=== PATIENT | male | born 1975 | race Caucasian/White ===

== ENCOUNTER 2021-03-27 06:18 | Day surgery (SDC) | payer OTHER, SELFPAY ==
[2021-03-27 06:46] VITALS: BP 119/89; PULSE 82; RESP 16; TEMP 36.4; O2SAT 97; BMI 32.4
[2021-03-27] MEDS: Lactated Ringers 1,000 ML 15 ML IV (06:52)
--- NOTE | 2021-03-27 07:30 | COLBX_PTH ---
PATIENT: NICHOLAS GARCIA Jr. LOC: EN U#:[id number] AGE/SX: 46/M ROOM: RE03/27/[address]: Dr. Sherwin Stephenson MD : 1975 BED: DIS: 03/27/2021 SPEC #: [id number] RECD: 03/27/21 07:53 STATUS: ARSLAN HERRERA #: [id number] RACHEL: 03/27/21 07:[address]: Sherwin Stephenson DEPT: SURGICAL PATHOLOGY RECD BY: Naila Michel Tissues: Rectum, NOS Procedures: Surgery Specimen Level IV HEADER OPERATION: Colonoscopy (MAC) PRE-OP DIAGNOSIS: LLQ pain TISSUE SUBMITTED: Rectal polyp MICROSCOPIC DIAGNOSIS Rectal polyp, biopsy: Fragments of hyperplastic polyp. SJ:daysi 03/28/2021 MICROSCOPIC DESCRIPTION Slides are reviewed. GROSS DESCRIPTION Received in fixative is one container labeled with the patient's name and designated rectal polyp. The specimen consists of two irregular fragments of light mccollum soft tissue that in aggregate measure 0.8 x 0.3 x 0.1 cm. The specimen is totally submitted in one cassette. / SJ:daysi 03/27/2021 TC:1 CPT: 29267
--- NOTE | 2021-03-27 07:39 | PCM.HP.BLA ---
History and Physical Date of Admission: 03/27/21 Intake Intake Visit Reasons: PHONE/ Consult for C-SCOPE HPI HPI Details: Patient was informed that this visit will be billed to patient. This visit was conducted during COVID- pandemic. NICHOLAS GARCIA, is a 46 F who presents to the office today for left lower quadrant pain. Patient has been experiencing several bouts of left lower quadrant pain attributed to diverticulitis although the patient has never had imaging or colonoscopy. Patient reports that when these episodes happen they are in the left lower quadrant but do not radiate. He does not have any blood in his stool. He has 2 episodes were treated successfully with antibiotics within the past year. Patient does not have any history of colon cancer in the family. He has never had a colonoscopy. Since his last episode of pain the patient has experienced mild episodic discomfort in the left lower quadrant. ROS Const Constitutional: No fatigue or weight change Resp Respiratory: No cough Cardio Cardiology: No palpitations Gastro GI: Positive for abdominal pain; No constipation, diarrhea or Black,tarry stools Psych Psychiatric: No anxiety and No depression Endo Endocrine: No fatigue or weight change Exam Const General: cooperative Orientation: alert and oriented x3 Neck Neck: full ROM Resp Effort & Inspection: normal respiratory effort and able to speak in complete sentences Cardio Rate: regular rate GI Inspection: non-distended Palpation: soft and nontender Skin General: no rashes or lesions noted Neuro General: patient alert and patient oriented x3 Extrem General: full ROM Psych Appearance: grossly normal Mental Status: mental status grossly normal Details: Details:: Exam was limited due to phone visit with no video. Coding Level of Care Code Level 2 Telephone Diagnoses LLQ pain R10.32 Assessment and Plan Assessment and Plan (1) LLQ pain: Status: Acute Plan: Patient has had 2 severe episodes of left lower quadrant pain over the past few months. These were attributed by his physician as diverticulitis. I recommended the patient undergo colonoscopy. If the colonoscopy does reveal diverticular stricture or diverticulosis and the patient has these continued episodes I would recommend sigmoid resection. Patient will be scheduled for colonoscopy to evaluate the sigmoid colon. I explained endoscopy in detail to the patient. I explained the risks including but not limited to stroke or heart attack with anesthesia, perforation of the GI tract, bleeding, infection. I explained that any of these could necessitate further emergency surgery. The patient understands and all questions were answered sufficiently. The patient wishes to proceed with procedure. Sherwin Stephenson MD Pager: [facility] [address] [place] [address], [address] [place] [address] Office: I have re-examined the patient. There are no clinical changes since date of exam.
[2021-03-27 07:40] VITALS: BP 119/89; BP 93/60; PULSE 89; RESP 16; TEMP 36.2; O2SAT 92
--- NOTE | 2021-03-27 07:42 | OP.COLON_ITS ---
Patient Name: Azar Zimmer Procedure Date: 03/27/2021 7:14 AM Date of : 1975 Age: 46 Procedure: Colonoscopy Indications: Abdominal pain in the left lower quadrant, Follow-up of diverticulitis Providers: Sherwin Stephenson MD Medicines: Monitored Anesthesia Care Patient Profile: This is a 46 year old male. Refer to note in patient chart for documentation of history and physical. Last Colonoscopy: none. The patient's first colonoscopy is today. Complications: No immediate complications. Procedure: Pre-Anesthesia Assessment: - Prior to the procedure, a History and Physical was performed, and patient medications and allergies were reviewed. The patient's tolerance of previous anesthesia was also reviewed. The risks and benefits of the procedure and the sedation options and risks were discussed with the patient. All questions were answered, and informed consent was obtained. Prior Anticoagulants: The patient has taken no previous anticoagulant or antiplatelet agents. After reviewing the risks and benefits, the patient was deemed in satisfactory condition to undergo the procedure. After I obtained informed consent, the scope was passed under direct vision. Throughout the procedure, the patient's blood pressure, pulse, and oxygen saturations were monitored continuously. The colonoscope was introduced through the anus and advanced to the cecum, identified by appendiceal orifice and ileocecal valve. The colonoscopy was performed without difficulty. The patient tolerated the procedure well. The quality of the bowel preparation was good. Scope In: 7:23:59 AM Scope Withdrawal Time 0 hours 8 minutes 43 seconds Scope Out: 7:36:54 AM Total Procedure Duration Time 0 hours 12 minutes 55 seconds Findings: A small polyp was found in the rectum. The polyp was removed with a hot snare. Resection and retrieval were complete. Multiple small-mouthed diverticula were found in the sigmoid colon. The exam was otherwise without abnormality on direct and retroflexion views. Impression: - One small polyp in the rectum, removed with a hot snare. Resected and retrieved. - Diverticulosis in the sigmoid colon. - The examination was otherwise normal on direct and retroflexion views. Recommendation: - Discharge patient to home. - Resume previous diet. - Continue present medications. - Await pathology results. - Repeat colonoscopy for surveillance based on pathology results. Procedure Code(s): --- Professional --- 29726, Colonoscopy, flexible; with removal of tumor(s), polyp(s), or other lesion(s) by snare technique Diagnosis Code(s): --- Professional --- K62.1, Rectal polyp R10.32, Left lower quadrant pain K57.32, Diverticulitis of large intestine without perforation or abscess without bleeding K57.30, Diverticulosis of large intestine without perforation or abscess without bleeding CPT copyright 2017 [employer]. All rights reserved. The codes documented in this report are preliminary and upon lubrication technician review may be revised to meet current compliance requirements. Sherwin Stephenson MD 03/27/2021 7:42:21 AM This report has been signed electronically. Number of Addenda: 0 Note Initiated On: 03/27/2021 7:14 AM
--- NOTE | 2021-03-27 07:42 | OP.CCLET_ITS ---
03/27/2021 Out Of Town Doctor Re : Colonoscopy procedure for Azar Zimmer Dear [facility] Doctor This procedure was performed on Saturday, March 27, 2021. My impressions and recommendations are as follows: Impressions : - One small polyp in the rectum, removed with a hot snare. Resected and retrieved. - Diverticulosis in the sigmoid colon. - The examination was otherwise normal on direct and retroflexion views. Recommendations : - Discharge patient to home. - Resume previous diet. - Continue present medications. - Await pathology results. - Repeat colonoscopy for surveillance based on pathology results. My findings are described in the full procedure note, which is enclosed. If I can be of further assistance, please feel free to contact me at Doctor phone number(s): , Work: . Sincerely, Sherwin Stephenson MD 03/27/2021 7:42:21 AM This report has been signed electronically.
[2021-03-27 07:45] VITALS: BP 119/89; BP 92/60; PULSE 84; RESP 16; O2SAT 93
[2021-03-27 07:50] VITALS: BP 119/89; BP 93/65; PULSE 80; RESP 16; O2SAT 93
[2021-03-27 07:55] VITALS: BP 107/73; BP 119/89; PULSE 85; RESP 16; TEMP 36.3; O2SAT 93
[2021-03-27 08:11] VITALS: BP 119/89
== END 2021-03-27 23:59 | disposition home or self-care (01) ==
LOC: EN 06:24 → AC 06:24
PROVIDERS: Visit Provider Surgery
PROC: 0DJD8ZZ Inspection of Lower Intestinal Tract, Via Natural or Artificial Opening Endoscopic (ICD-10-PCS; CPT 45378; principal; 2021-03-27 07:25)
DX: K62.1 Rectal polyp (principal); Z90.49 Acquired absence of other specified parts of digestive tract; K57.30 Diverticulosis of large intestine without perforation or abscess without bleeding; Z86.16 Personal history of COVID-19
CPT/HCPCS: 45385; 88305; J7120; J2405

== ENCOUNTER → 2023-11-17 | Outpatient (CLI) | payer OTHER, SELFPAY ==
--- NOTE | 2023-11-17 15:01 | CT_ITS ---
STUDY: CT ABDOMEN AND PELVIS WITH CONTRAST REASON FOR EXAM: Male, 48 years old. Recurrent Diverticulitis -- PO and IV contrast. Abdominal pain/discomfort. RADIATION DOSAGE (If Supplied By Facility): CTDIvol = ( 15.83 ) mGy, DLP = ( 1230.05 ) mGycm TECHNIQUE: Transaxial images were obtained from the dome of the diaphragm to the symphysis pubis with oral contrast. Oral and amp; IV Readi-CAT and amp; 100mL Isovue-370 was administered. Sagittal and coronal images were reconstructed. Individualized dose optimization techniques were used for this CT. COMPARISON: None. FINDINGS: The visualized lung bases are unremarkable. The visualized portions of the heart are within normal limits. There is a 1.2 cm cyst in the inferior lateral aspect of the right lobe of the liver. Normal gallbladder and extrahepatic biliary system. There is mild splenomegaly. Normal pancreas. Normal bilateral adrenal glands. Normal right kidney. Normal left kidney. There is a small hiatal hernia. Normal small intestine. There are multiple colonic diverticula consistent with diverticulosis. The appendix is visualized and appears normal. Normal abdominal aorta. Normal inferior vena cava. Normal retroperitoneum. Normal urinary bladder. The prostate is slightly enlarged and measures 4 cm x 5.1 cm. Minimal central calcification is seen. Normal abdominal wall. 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 CT/Abdomen/Pelvis WITH Contrast IMPRESSION: Sigmoid diverticulosis. Mild splenomegaly. 1.2 cm cyst in the right lobe of the liver. Electronically Signed: Delta Lomas MD at 15:05 EDT ,
== END | disposition home or self-care (01) ==
LOC: CT 14:19
PROVIDERS: Referring Provider Surgery; Visit Provider Surgery
DX: K57.92 Diverticulitis of intestine, part unspecified, without perforation or abscess without bleeding (principal)
CPT/HCPCS: 74177; Q9967

== ENCOUNTER → 2023-12-25 | Outpatient (CLI) | payer OTHER, SELFPAY ==
[2023-12-25 17:51] LABS: Absolute Lymphocyte Count 1.46 X10^3/uL (0.83-4.51); Absolute Neutrophil Count 4.6 X10^3/uL (2.0-7.7); Basophil# 0.04 X10^3/uL; Basophil% 0.6 % (0-1); Eosinophil# 0.09 X10^3/uL; Eosinophils% 1.4 % (0-5); Hematocrit 46.8 % (40-54); Hemoglobin 15.2 g/dL (13.0-16.5); Lymphocyte # 1.46 X10^3/ul (0.83-4.51); Mean Corp Hgb Conc 32.5 g/dL (32-36); Mean Corpuscular Volume 89.3 fL (80-94); Mean Platelet Vol. 11.7 fl (6.2-12.0); Monocyte# 0.45 X10^3/uL; Monocyte% 6.8 % (0-10); NRBC Flagged by Analyzer 0 % (0-5); Neutrophil # 4.57 X10^3/uL (2.7-7.7); Neutrophil % 68.9 % (47-70); Platelet Count 237 K/mm3 (150-450); RBC Distribution Width CV 13.1 % (11.6-14.6); RBC Distribution Width SD 42.6 fl (35.1-43.9); Red Blood Count 5.24 M/mm3 (4.6-6.2); White Blood Count 6.6 K/mm3 (4.4-11.0)
[2023-12-25 19:27] LABS: AST(SGOT) 22 U/L (15-37); Alanine Aminotransfer ALT/SGPT 28 U/L (16-61); Albumin, Serum 3.7 g/dL (3.2-5.0); Alkaline Phosphatase 67 U/L (45-117); Anion Gap 4 (5-15); BUN 14 mg/dL (7-18); BUN/Creat Ratio 15.1 RATIO (10-20); Chloride 105 mmol/L (98-107); Cholesterol 202 mg/dL (200); Creatinine, Serum 0.93 mg/dL (0.70-1.30); EST Glomerular Filtration Rate 92 mL/min (>60); Est Glom Filt Rate - Afr Amer 111 mL/min (>60); Globulin 3.6 g/dL (2.2-4.2); Glucose 127 mg/dL (74-106); High Density Lipoprotein 37 mg/dL; PSA,Total - Annual Screen 1.43 ng/mL (0.00-4.00); Potassium 4.1 mmol/L (3.5-5.1); Protein, Total 7.3 g/dL (6.4-8.2); Sodium Level 138 mmol/L (136-145); T4 Free Direct 0.83 ng/dL (0.76-1.46); Triglycerides 497 mg/dL
== END | disposition home or self-care (01) ==
PROVIDERS: PCP Family Medicine; Referring Provider Family Medicine; Visit Provider Family Medicine
DX: Z12.5 Encounter for screening for malignant neoplasm of prostate (principal); E04.1 Nontoxic single thyroid nodule
CPT/HCPCS: 36415; 80053; 80061; 84153; 84439; 84443; 85025; G0103

== ENCOUNTER → 2024-01-22 | Outpatient (CLI) | payer OTHER, SELFPAY ==
--- NOTE | 2024-01-22 14:01 | US_ITS ---
STUDY: THYROID ULTRASOUND REASON FOR EXAM: Male, 48 years old. Thyroid nodule. TECHNIQUE: Ultrasound evaluation of the thyroid was performed with real-time and static rubalcava-scale imaging. COMPARISON: None. FINDINGS: RIGHT LOBE: The right lobe of the thyroid gland measures 4.6 cm x 1.3 cm x 1.8 cm. There is a homogeneous echotexture. There are no demonstrated solid, cystic or complex lesions. LEFT LOBE: The left lobe of the thyroid gland measures 4.2 cm x 1.6 x 1.7 cm. There is a homogeneous echotexture. There are no demonstrated solid, cystic or complex lesions. ISTHMUS: The isthmus measures 5 mm. The regional lymph nodes are normal. US/Thyroid IMPRESSION: Normal ultrasound examination of the thyroid. Electronically Signed: Delta Lomas MD at 15:27 EST ,
== END | disposition home or self-care (01) ==
LOC: US 14:00
PROVIDERS: PCP Family Medicine; Referring Provider Family Medicine; Visit Provider Family Medicine
DX: E04.1 Nontoxic single thyroid nodule (principal)
CPT/HCPCS: 76536

== ENCOUNTER → 2024-04-22 | Outpatient (CLI) | payer OTHER, SELFPAY ==
[2024-04-22 10:39] LABS: AST(SGOT) 21 U/L (15-37); Alanine Aminotransfer ALT/SGPT 25 U/L (16-61); Albumin, Serum 3.7 g/dL (3.2-5.0); Alkaline Phosphatase 71 U/L (45-117); Anion Gap 5 (5-15); BUN 12 mg/dL (7-18); BUN/Creat Ratio 13.8 RATIO (10-20); Calcium,Total 8.7 mg/dL (8.5-10.1); Chloride 107 mmol/L (98-107); Cholesterol 170 mg/dL (200); Creatinine, Serum 0.87 mg/dL (0.70-1.30); EST Glomerular Filtration Rate 99 mL/min (>60); Est Glom Filt Rate - Afr Amer 119 mL/min (>60); Globulin 3.7 g/dL (2.2-4.2); Glucose 112 mg/dL (74-106); High Density Lipoprotein 46 mg/dL; Potassium 4.1 mmol/L (3.5-5.1); Protein, Total 7.4 g/dL (6.4-8.2); Sodium Level 140 mmol/L (136-145); Triglycerides 132 mg/dL; Very Low Density Lipoprotein 26 mg/dL (5-40)
[2024-04-23 11:12] LABS: Hemoglobin A1c 5.5 % (3.8-5.6)
== END | disposition home or self-care (01) ==
LOC: MFPLAB 08:30
PROVIDERS: PCP Family Medicine; Referring Provider Family Medicine; Visit Provider Family Medicine
DX: R73.09 Other abnormal glucose (principal); E78.2 Mixed hyperlipidemia
CPT/HCPCS: 36415; 80053; 80061; 83036

== ENCOUNTER 2025-01-19 12:25 | Emergency (ER) | payer OTHER, SELFPAY ==
[2025-01-19 12:26] VITALS: BP 154/103; PULSE 103; RESP 18; TEMP 36.2; O2SAT 97; BMI 33.3
--- NOTE | 2025-01-19 12:46 | ED.VIS.GI ---
HPI HPI - GI History of Present Illness Chief Complaint: Abd Pain Informant: patient Narrative Narrative: 49-year-old male presenting to the emergency room with a chief complaint of abdominal pain. Patient states that last night he began to feel bloated and uncomfortable in his abdomen. He states that this morning he had a very small bowel movement. He went to work and continued feeling the same symptoms but then began to have more discomfort on the left side. He notes sensitivity when he walks and when he pushes on the left mid to lateral abdomen. He does have a history of diverticulosis and has had colonoscopy with Dr. Stephenson. He states he spoke with his surgeon who advised to come to emergency for evaluation. He denies any urinary symptoms. No nausea no vomiting. He has not had any prior abdominal surgeries. He has not ate today but did have coffee. PFSH PFSH Medical History History of COVID-19 Depression Alcohol use Marijuana use Heartburn Non-smoker Home Medications ?Medication ?Instructions ?Recorded ?Last Taken ?Type amoxicillin 875 mg-potassium 875 mg PO Q12H #20 TABLETS 01/19/25 Unknown Rx clavulanate 125 mg tablet ondansetron 4 mg disintegrating 4 mg PO Q6H PRN PRN Nausea #15 tabs 01/19/25 Unknown Rx tablet oxycodone-acetaminophen 5 mg-325 1 tab PO Q6H PRN PRN Pain 3 days 01/19/25 Unknown Rx mg tablet #12 TABLETS Allergy/AdvReac Type Severity Reaction Status Date / Time No Known Allergies Allergy Verified 01/19/25 12:26 Surgical History Hx of tonsillectomy Social History Smoking Status: Never smoker ROS ROS ED Constitutional Constitutional ED: Denies chills, fever(s) or weight loss Eyes Eyes: Denies change in vision or diplopia ENT ENT ED: Denies ear pain, rhinorrhea or sore throat Cardiovascular Cardiovascular: Denies chest pain, orthopnea, palpitations or racing heartbeat Respiratory/Chest Respiratory/Chest: Denies cough, dyspnea or orthopnea Gastrointestinal Gastrointestinal: Reports abdominal pain, constipation and other Details: Bloating sensation ; Denies diarrhea, nausea or vomiting Genitourinary Genitourinary ED: Denies dysuria, hematuria or urinary frequency Musculoskeletal Musculoskeletal: Denies arthralgias or myalgias Integumentary Denies abscess or rash Neurologic Neurologic: Denies headache(s) or weakness Psychiatric Psychiatric: Denies anxiety, depression, suicidal ideation or suicidal thoughts Endocrine Endocrinology: Denies polydipsia, polyphagia or polyuria Allergic/Immunologic Allergic/Immunologic ED: Denies mouth swelling, tongue swelling or urticaria EXAM Physical Exam Const Vital Signs: 01/19/25 12:26 Temperature 97.2 F L Temperature Source Temporal Pulse Rate 103 H Respiratory Rate 18 Blood Pressure 154/103 H Blood Pressure Mean 120 Pulse Ox 97 Oxygen Delivery Method Room Air Positive well nourished and well developed General Appearance ED: well developed and NAD HEENT Reports normocephalic, head/scalp atraumatic and moist mucous membranes Eyes PERRL and EOMs intact bilaterally Neck no lymphadenopathy, supple and no JVD Resp normal respiratory effort and clear to auscultation bilaterally Cardio regular rate, regular rhythm and no murmurs GI Inspection: Negative for abdominal distention Auscultation: normoactive bowel sounds Palpation: soft and tender LLQ; Negative for guarding or rebound tenderness present Back/Spine no CVA tenderness and normal ROM Extremity normal to inspection General Extremety ED: Negative for edema General Extremity: Negative for edema Neuro oriented x3 and CN's II-XII intact bilaterally Sensorium / Orientation: alert Motor Exam: strength 5/5 throughout Psych mental status grossly normal Mood & Affect: Negative for depressed or tearful Skin no rashes or lesions noted and no wounds MDM MDM MDM Narrative Medical decision making narrative: Differential diagnosis includes intra-abdominal abscess colitis diverticulitis kidney stone pancreatitis hydronephrosis UTI Patient blood work shows white count 12.6. Normal creatinine. Normal LFTs and lipase. CT abdomen pelvis was obtained read by radiology and reviewed by myself. I do see inflammation around the colon without obvious perforation or abscess. I did discuss the case with the patient's surgeon Dr. Stephenson. I informed the patient of the above results. We are going to write for Augmentin and I can also write for pain and nausea medication which she is open to. He will stick with a clear diet. Monitor for worsening symptoms return if needed. History & Record Review Discussion w/independent historian: Patient Additional record(s) reviewed:: Prior ED visit and Prior labs Lab Data Attestation: I reviewed the patient's lab results. Labs: Laboratory Results - last 24 hr 01/19/25 12:49 WBC 12.6 H RBC 5.33 Hgb 15.6 Hct 46.7 MCV 87.6 MCH 29.3 MCHC 33.4 RDW Std Deviation 40.6 RDW Coeff of Ceci 12.7 Plt Count 245 MPV 10.4 Immature Gran % (Auto) 0.300 Neut % (Auto) 80.5 H Lymph % (Auto) 9.8 L [place] % (Auto) 8.7 Eos % (Auto) 0.5 Baso % (Auto) 0.2 Absolute Neuts (auto) 10.1 H Absolute Lymphs (auto) 1.24 Nucleated RBC % 0 Sodium 136 Potassium 3.9 Chloride 102 Carbon Dioxide 26.1 Anion Gap 8 BUN 13 Creatinine 0.93 Estim Creat Clear Calc 104.01 Est GFR (MDRD) Non-Af 100 BUN/Creatinine Ratio 13.7 Glucose 101 H Calcium 9.3 Total Bilirubin 0.56 Direct Bilirubin 0.21 AST 19 ALT 18 Alkaline Phosphatase 66 Total Protein 7.4 Albumin 4.1 Globulin 3.3 Lipase 39 Radiography Diagnostic Testing: Clinical Impression(s) from Imaging Studies Abdomen/Pelvis CT 01/19/25 12:55 IMPRESSION: Colitis involving the descending colon as well as the proximal sigmoid colon. Multiple sigmoid diverticula are seen. Reading Location: [facility] Management Discussion w/another healthcare provider: Operations And Maintenance Supervisor (Dr Stephenson) Discharge Plan Triage Chief Complaint: Abd Pain ED Provider: Robert Caba Dx/Rx/DC Orders Clinical Impression: LLQ pain, Diverticulitis Instructions: ED Diverticulitis Prescriptions: New oxycodone-acetaminophen 5-325 mg tablet 1 tab PO Q6H PRN PRN (Reason: Pain) 3 Days Qty: 12 0RF ondansetron 4 mg tablet,disintegrating 4 mg PO Q6H PRN PRN (Reason: Nausea) Qty: 15 0RF amoxicillin-pot clavulanate 875-125 mg tablet 875 mg PO Q12H Qty: 20 0RF Primary Care Provider: Fernando Pinon Referrals: Sherwin Stephenson MD [Med Staff - Active Staff, General Surgery] - As Needed Fernando Pinon MD [Primary Care Provider, [facility]] Print Language: Swiss Disposition Disposition: Home, Self Care
--- NOTE | 2025-01-19 12:55 | CT_ITS ---
PROCEDURE: ABDOMEN/PELVIS W IV CONT ONLY 01/19/2025 REASON FOR EXAM: ABDOMINAL PAIN DIVERTICULITIS TECHNIQUE: Procedure Code: [id number] Modality: CT Procedure: ABDOMEN/PELVIS W IV CONT ONLY Coronal and Sagittal reconstruction series were provided. CONTRAST: Isovue-300 VOLUME: 100 mL One or more dose reduction techniques were used (e.g., Automated exposure control, adjustment of the mA and/or kV according to patient size, use of iterative reconstruction technique. RADIATION DOSE SUMMARY: CTDlvol: 13.8 mGy DLP: 1316.25 mGycm COMPARISON: Prior study dated November 17, 2023 FINDINGS: Lung bases: The lung bases are clear. Liver: Normal size. No mass. Tiny cysts are seen in the inferior aspect of the right lobe of the liver. This is unchanged. Gallbladder: Unremarkable Spleen: Normal size. Pancreas: Normal size without evidence of mass surrounding inflammation or ductal dilation. Adrenals: Unremarkable Kidneys: Normal renal sizes. No hydronephrosis. Bladder: Unremarkable Bowel: Circumferential wall thickening and pericolonic inflammatory changes seen in the descending colon down to the region of the sigmoid colon where there are multiple diverticula. There is evidence of thickening of the right perinephric fascia. Appendix: Unremarkable Lymph nodes: Unremarkable Vasculature: Minimal calcific plaque Peritoneum / Retroperitoneum: Inflammatory changes seen in the peritoneal fat in the left midabdomen. Bones: Grade 1 anterior listhesis of L4 on L5 due to spondylolysis with disc space narrowing at the L4-L5 level. CT/Abdomen/Pelvis W IV Cont ONLY IMPRESSION: Colitis involving the descending colon as well as the proximal sigmoid colon. Multiple sigmoid diverticula are seen. Reading Location: [id number]
[2025-01-19 12:56] LABS: Hematocrit 46.7 % (40-54); Hemoglobin 15.6 g/dL (13.0-16.5); Immature Granulocytes Count 0.040 X10^3/uL (0.0-0.0); Mean Corp Hgb Conc 33.4 g/dL (32-36); Mean Corpuscular Volume 87.6 fL (80-94); Mean Platelet Vol. 10.4 fl (6.2-12.0); NRBC Flagged by Analyzer 0 % (0-5); Platelet Count 245 K/mm3 (150-450); RBC Distribution Width CV 12.7 % (11.6-14.6); RBC Distribution Width SD 40.6 fl (35.1-43.9); Red Blood Count 5.33 M/mm3 (4.6-6.2); White Blood Count 12.6 K/mm3 (4.4-11.0)
[2025-01-19 13:23] LABS: AST(SGOT) 19 U/L (<=37); Alanine Aminotransfer ALT/SGPT 18 U/L (<=46); Albumin, Serum 4.1 g/dL (3.5-5.0); Alkaline Phosphatase 66 U/L (40-129); Anion Gap 8 (5-15); BUN 13 mg/dL (4-19); BUN/Creat Ratio 13.7 RATIO (10-20); Bilirubin, Direct 0.21 mg/dL (0.00-0.30); Calcium,Total 9.3 mg/dL (7.6-11.0); Carbon Dioxide 26.1 mmol/L (21.0-32.0); Chloride 102 mmol/L (98-108); Estimated Creatinine Clearance 104.01 ml/min (50-250); Globulin 3.3 g/dL (2.2-4.2); Glucose 101 mg/dL (70-99); Lipase 39 U/L (13-75); Potassium 3.9 mmol/L (3.3-5.1)
[2025-01-19 14:18] VITALS: BP 153/95; PULSE 82; RESP 14; TEMP 36.6; O2SAT 100
== END 2025-01-19 14:19 | disposition home or self-care (01) ==
PROVIDERS: Emergency Provider Emergency Medicine; PCP Family Medicine; Visit Provider Emergency Medicine
DX: R10.32 Left lower quadrant pain (principal); K57.92 Diverticulitis of intestine, part unspecified, without perforation or abscess without bleeding
CPT/HCPCS: 74177; 80048; 80076; 83690; 85025; 99283; Q9967; A4216